=== PATIENT | female | born 1995 | race Two or more races ===

== ENCOUNTER 2017-03-05 16:32 | Emergency (ER) | payer SELFPAY ==
[~2017-03-05] VITALS: Ht 162.6 cm; Wt 49.3 kg
[2017-03-05 18:11] VITALS: BP 108/52
== END 2017-03-05 18:12 | disposition home or self-care (01) ==
LOC: EME 16:32
DX: B34.9 Viral infection, unspecified (principal); J02.9 Acute pharyngitis, unspecified; R05 Cough; J34.89 Other specified disorders of nose and nasal sinuses
CPT/HCPCS: 87651 90; 99281; 99283

== ENCOUNTER 2017-04-21 03:02 | Emergency (ER) | payer SELFPAY ==
[~2017-04-21] VITALS: Ht 162.6 cm; Wt 52.8 kg
[2017-04-21 03:05] VITALS: BP 147/98
== END 2017-04-21 04:14 | disposition left against medical advice (07) ==
LOC: EME 03:02
DX: T78.40XA Allergy, unspecified, initial encounter (principal); Z53.21 Procedure and treatment not carried out due to patient leaving prior to being seen by health care provider

== ENCOUNTER 2017-05-12 08:36 | Emergency (ER) | payer SELFPAY ==
[~2017-05-12] VITALS: Ht 160 cm; Wt 52.8 kg
[2017-05-12 09:06] LABS: HEMOGLOBIN 13.8 G/DL (11.9-15.5); MCH 31.7 PG (29.0-34.0); MCHC 34.5 G/DL (30.0-36.0); MCV 91.7 FL (83-99); PLATELET COUNT 311 K/uL (156-360); RBC DIS.WIDTH-CV 11.9 % (11.8-14.6); RED BLOOD COUNT 4.36 M/uL (3.80-5.20)
[2017-05-12 09:14] LABS: ALBUMIN 4.7 g/dL (3.2-4.8); CHLORIDE 103 mEq/L (99-109); SODIUM 137 mEq/L (136-147)
[2017-05-12 09:16] LABS: GLUCOSE 92 mg/dL (70-99)
[2017-05-12 09:17] LABS: TOTAL PROTEIN 8.3 g/dL (6.4-8.3)
[2017-05-12 09:18] LABS: TOTAL BILIRUBIN 0.2 mg/dL (0.0-1.0)
[2017-05-12 09:20] LABS: ALKALINE PHOSPHATASE 94 IU/L (3-129); CREATININE 0.8 mg/dL (0.6-1.3); GFR ESTIMATE (CALCULATED) > 59 mL/min/
[2017-05-12 09:21] LABS: UREA NITROGEN (BUN) 9 mg/dL (9-23)
[2017-05-12 09:22] LABS: AST (GOT) 18 IU/L (2-34)
[2017-05-12 09:23] LABS: ALT (GPT) 15 IU/L (3-49)
[2017-05-12 09:31] LABS: QUANTITATIVE HCG < 4.0 MIU/ML
[2017-05-12 10:21] LABS: APPEARANCE SL.HAZY ((CLEAR)); BILIRUBIN NEGATIVE; BLOOD NEGATIVE; COLOR STRAW ((YELLOW)); GLUCOSE (STRIP) NEGATIVE; KETONES NEGATIVE; LEUKOCYTES TRACE; NITRITE NEGATIVE; PROTEIN (STRIP) NEGATIVE; SPECIFIC GRAVITY 1.003 (1.000-1.030); UROBILINOGEN 0.2 MG/DL (0.2-1.0)
[2017-05-12 10:24] LABS: BACTERIA 3+ /HPF; EPITHELIAL CELLS 1+ /HPF; MUCUS NONE SEEN /LPF; RED BLOOD CELLS 0-5 /HPF (0-5); UCUL ADDED? YES
[2017-05-12] MEDS ORDERED: KEFLEX250 MG/5 M PO (10:51)
[2017-05-12 11:05] VITALS: BP 00/00
== END 2017-05-12 11:07 | disposition home or self-care (01) ==
LOC: EME 08:36
DX: K59.00 Constipation, unspecified (principal); N39.0 Urinary tract infection, site not specified; N20.0 Calculus of kidney; F41.9 Anxiety disorder, unspecified; Z88.8 Allergy status to other drugs, medicaments and biological substances
CPT/HCPCS: 80053; 81003; 84702; 85027; 87077; 87086; 87186; 99281; 99284